=== PATIENT | male | born 1975 | race Caucasian/White ===

== ENCOUNTER 2021-07-15 16:08 | Emergency (ER) | payer MEDICAID ==
[~2021-07-15] VITALS: Ht 182.9 cm; Wt 102.1 kg
[2021-07-15 16:20] VITALS: BP 181/135
[2021-07-15] MEDS ORDERED: cefTRIAXone 500 MG in LIDOCAINE MPF 1% 1 ML IM ONE (16:35)
[2021-07-15] MEDS ORDERED: metroNIDAZOLE 250 MG TAB PO ONE (16:35)
[2021-07-15] MEDS ORDERED: cefTRIAXone 500 MG VIAL ONE (17:28)
[2021-07-15] MEDS ORDERED: DOXY-565 PO (17:45)
[2021-07-15] MEDS ORDERED: CEPH500C16 PO (17:45)
--- NOTE | 2021-07-15 17:46 | NUR ---
46/M PRESENTS TO ED REQUESTING STD CHECK, STATES HE HAD INTERCOURSE WITH A FEMALE 7 DAYS AGO AND SHE NOTIFIED HIM TODAY THAT SHE HAS AN UNKNOWN STD. PATIENT REPORTS DISHCARGE, BURNING AND DYSURIA STARTED 2 DAYS AGO. DENIES FEVERS OR CHILLS.
--- NOTE | 2021-07-15 17:57 | NUR ---
Patient discharged with v/s stable. Written and verbal after care instructions ABOUT DYSURIA given and explained. Patient alert, oriented and verbalized understanding of instructions. Ambulatory with steady gait. All questions addressed prior to discharge. ID band removed. Patient advised to follow up with PMD. Rx of KEFLEX AND DOXYCYCLINE MONOHYDRATE given. Patient educated on indication of medication including possible reaction and side effects. Opportunity to ask questions provided and answered.
== END 2021-07-15 17:57 | disposition home or self-care (01) ==
LOC: MED 16:08
DX: R30.0 Dysuria (principal); I10 Essential (primary) hypertension; Z20.2 Contact with and (suspected) exposure to infections with a predominantly sexual mode of transmission; Z79.899 Other long term (current) drug therapy; Z98.890 Other specified postprocedural states
CPT/HCPCS: 36415; 81002; 87086; 87491; 96372; 99283; J0696

== ENCOUNTER 2021-10-18 18:08 | Emergency (ER) | payer MEDICAID ==
[~2021-10-18] VITALS: Ht 188 cm; Wt 103.4 kg
[~2021-10-18 18:08] MED LIST: CEPH500C16 PO; DOXY-565 PO
[2021-10-18 18:12] VITALS: BP 197/124
--- NOTE | 2021-10-18 19:03 | NUR ---
PT AMBULATED TO BED 2
--- NOTE | 2021-10-18 19:49 | NUR ---
46 Y/O MALE BIBS, C/O COUGHING UP BLOOD. PATIENT PRESENTS TO ED WITH MID CP FROM COUGHING, NO OBVIOUS TRAUMA. PT STATES HE HAS BEEN COUGHING BROWNISH BLOOD SINCE . DENIES N/V/D; SKIN IS PINK/WARM/DRY; AAOX4 WITH EVEN AND STEADY GAIT; HR EVEN AND REGULAR; PT DENIES ANY FEVER, CP, SOB AT THIS TIME; VSS; PATIENT POSITIONED FOR COMFORT; HOB ELEVATED; BEDRAILS UP X1; BED DOWN. ER MD MADE AWARE OF PT STATUS. PMH: DRUG/ALCOHOL USE, HTN NKA
[2021-10-18 20:29] VITALS: BP 185/111
--- NOTE | 2021-10-18 20:29 | NUR ---
Patient discharged with v/s stable. Written and verbal after care instructions given and explained. Patient verbalized understanding. Ambulatory with steady gait. All questions addressed prior to discharge. Advised to follow up with PMD. VSS, A/OX4, AMBULATORY, UNLABORED BREATHING, AND CALM DEMEANOR.
== END 2021-10-18 20:29 | disposition home or self-care (01) ==
LOC: MED 18:08
DX: R04.2 Hemoptysis (principal); F15.10 Other stimulant abuse, uncomplicated; I10 Essential (primary) hypertension; F17.200 Nicotine dependence, unspecified, uncomplicated; Z79.899 Other long term (current) drug therapy
CPT/HCPCS: 71045; 99283